=== PATIENT | male | born 1985 | race Caucasian/White ===

== ENCOUNTER 2022-08-10 11:36 | Emergency (ER) | payer OTHER ==
[2022-08-10 11:54] VITALS: RESP 16; TEMP 98.1
[2022-08-10] MEDS ORDERED: SODIUM CHLORIDE 0.9% 1,000 ML IV STA (12:33)
[2022-08-10] MEDS ORDERED: diphenhydrAMINE 50 MG/ML 1 ML VIAL IVP STA (12:34)
[2022-08-10] MEDS ORDERED: METOCLOPRAMIDE 5 MG/ML 2 ML VIAL IVP STA (12:34)
--- NOTE | 2022-08-10 12:37 | ED ---
General Adult HPI - General Chief complaint: Headache Stated complaint: headache, memory problem Time Seen by Provider: 08/10/22 12:00 Source: patient, family, RN notes reviewed Mode of arrival: ambulatory Limitations: no limitations - History of Present Illness Initial comments: Patient is a pleasant 36-year-old male presenting to the emergency department with concerns with headache. Onset of symptoms was around 4 weeks ago. Patient is having left-sided headaches. The last 2 days patient has having difficulty naming objects. Patient does not feel confused however is concerned that patient has some memory problems as well. No weakness. Headache is currently rated 8/10. Headache was not sudden onset. Tylenol or Motrin to help with he adache. Patient occasionally has mild photophobia. No nausea or vomiting. No history of chronic headaches. Patient did go to urgent care as well as primary care physician with concerns for ALLERGIES and sinus infections. - Related Data Home Medications Medication Instructions Recorded Confirmed Fluticasone Nasal [place] [Flonase 2 spr EA NOSTRIL BID PRN 08/10/22 08/10/22 Nasal [place]] lisinopriL [Zestril] 10 mg PO HS 08/10/22 08/10/22 Allergies Allergy/AdvReac Type Severity Reaction Status Date / Time No Known Allergies Allergy Verified 08/10/22 13:53 Review of Systems ROS Statement: Those systems with pertinent positive or pertinent negative responses have been documented in the HPI. ROS Other: All systems not noted in ROS Statement are negative. Constitutional: Denies: fever Eyes: Denies: eye pain, vision change ENT: Denies: ear pain Respiratory: Denies: cough Cardiovascular: Denies: chest pain Endocrine: Denies: fatigue Gastrointestinal: Denies: abdominal pain Genitourinary: Denies: dysuria Musculoskeletal: Denies: back pain Skin: Denies: rash Neurological: Reports: as per HPI, headache Past Medical History Past Medical History: Hypertension History of Any Multi-Drug Resistant Organisms: None Reported Past Surgical History: No Surgical Hx Reported Past Psychological History: Anxiety Smoking Status: Never smoker Past Alcohol Use History: None Reported Past Drug Use History: None Reported General Exam Limitations: no limitations General appearance: alert, in no apparent distress Head exam: Present: normocephalic Eye exam: Present: normal appearance, PERRL, EOMI ENT exam: Present: normal oropharynx Neck exam: Present: normal inspection Respiratory exam: Present: normal lung sounds bilaterally Cardiovascular Exam: Present: regular rate, normal rhythm GI/Abdominal exam: Present: soft. Absent: tenderness Extremities exam: Present: normal inspection Neurological exam: Present: alert, CN II-XII intact. Absent: motor sensory deficit Expanded Neurological exam: Present: protecting the airway Speech: Present: fluid speech Cranial nerves: EOM's Intact: Normal, Facial Sensation: Normal Sensory exam: Upper Extremity Light Touch: Normal, Lower Extremity Light Touch: Normal Motor strength exam: RUE: 5, LUE: 5, RLE: 5, LLE: 5 Eye Response: (4) open spontaneously Motor Response: (6) obeys commands Verbal Response: (5) oriented Psychiatric exam: Present: normal affect, normal mood Skin exam: Present: normal color Course Vital Signs 08/10/22 08/10/22 08/10/22 11:50 13:53 14:36 Temperature 98.1 F Pulse Rate 100 90 Respiratory 16 16 Rate Blood Pressure 150/94 119/78 128/84 O2 Sat by Pulse 98 97 Oximetry - Reevaluation(s) Reevaluation #1: 08/10/22 13:54 Call received from radiologist with concern for bleed. Patient is getting loaded up and stroke robot and paged sent for neurointerventional 08/10/22 14:06 Case was discussed with Dr. Iftikhar navarro who does recommend blood pressure control and transferred to [place]. 08/10/22 14:11 Repeat pressure 119/78 08/10/22 14:28 Also discussed with the transfer center at [facility], Dr. Sandoval to except transfer. Patient reevaluated. Patient and family updated. Family does not want patient to be transferred to [facility] secondary to insurance reasons. They do work at [employer] and do not feel insurance will cover this. 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 Patient is in agreement. They are made aware of concern for potential deterioration for waiting, and previous experience with transfers to [facility] can be prolonged. She would like time to contact some people. 08/10/22 14:51 Patient and family still would like to try [facility] transfer center. She quest c alling there for transfer to [facility] or [place] 08/10/22 15:04 Transfer team contacted. They will call back. 08/10/22 15:28 [facility] called and will call back. 08/10/22 15:40 case was discussed with Dr. Brown at [facility] who will likely accept patient and is looking for a bed. He does recommend 2 g of Keppra. 08/10/22 15:44 Patient again reevaluated. Patient and family updated. 08/10/22 18:21 [facility] contacted several times and are currently cleaning a bed with anticipation of availability soon. EKG Findings - EKG Comments: EKG Findings:: Sinus rhythm rate 80. CT 146. QRS 1:15. QT 376. QTc 412. Left axis. Normal QRS. No acute ST change Medical Decision Making - Lab Data Result diagrams: 08/10/22 12:39 08/10/22 12:39 Lab Results 08/10/22 08/10/22 08/10/22 Range/Units 12:39 12:39 12:39 WBC 6.6 (3.8-10.6) k/uL RBC 5.19 (4.30-5.90) m/uL Hgb 15.8 (13.0-17.5) gm/dL Hct 45.5 (39.0-53.0) % MCV 87.7 (80.0-100.0) fL MCH 30.5 (25.0-35.0) pg MCHC 34.8 (31.0-37.0) g/dL RDW 12.7 (11.5-15.5) % Plt Count 183 (150-450) k/uL MPV 7.9 Neutrophils % 76 % Lymphocytes % 12 % Monocytes % 8 % Eosinophils % 1 % Basophils % 1 % Neutrophils # 5.0 (1.3-7.7) k/uL Lymphocytes # 0.8 L (1.0-4.8) k/uL Monocytes # 0.6 (0-1.0) k/uL Eosinophils # 0.0 (0-0.7) k/uL Basophils # 0.0 (0-0.2) k/uL PT 10.6 (9.0-12.0) sec INR 1.0 (<1.2) APTT 27.1 (22.0-30.0) sec Sodium 139 (137-145) mmol/L Potassium 4.3 (3.5-5.1) mmol/L Chloride 100 (98-107) mmol/L Carbon Dioxide 28 (22-30) mmol/L Anion Gap 11 mmol/L BUN 19 (9-20) mg/dL Creatinine 1.02 (0.66-1.25) mg/dL Est GFR (CKD-EPI)AfAm >90 (>60 ml/min/1.73 sqM) Est GFR (CKD-EPI)NonAf >90 (>60 ml/min/1.73 sqM) Glucose 112 H (74-99) mg/dL Calcium 9.9 (8.4-10.2) mg/dL Total Bilirubin 0.6 (0.2-1.3) mg/dL AST 29 (17-59) U/L ALT 20 (4-49) U/L Alkaline Phosphatase 69 (38-126) U/L Total Protein 7.4 (6.3-8.2) g/dL Albumin 5.0 (3.5-5.0) g/dL Serum Alcohol <10 mg/dL - Radiology Data Radiology results: image reviewed (As discussed with radiologist left frontal b leed with mass effect and shift. Positive vasogenic edema. Cannot exclude underlying tumor.) Critical Care Time Critical Care Time: Yes Total Critical Care Time: 45 Disposition Clinical Impression: Cerebral parenchymal hemorrhage Disposition: OTHER INSTITUTION NOT DEFINED Is patient prescribed a controlled substance at d/c from ED?: No Referrals: Nonstaff,Physician [Primary Care Provider] - 1-2 days Time of Disposition: 15:40 - Out of Hospital Transfer - Req. Specs Out of Hospital Transfer - Requested Specifics: Neurological ICU
[2022-08-10 12:48] LABS: Basophils % (A) 1 %; Eosinophils % (A) 1 %; HCT 45.5 % (39.0-53.0); HGB 15.8 gm/dL (13.0-17.5); Lymphocytes # (A) 0.8 k/uL (1.0-4.8); Lymphocytes % (A) 12 %; MCH 30.5 pg (25.0-35.0); MCHC 34.8 g/dL (31.0-37.0); MCV 87.7 fL (80.0-100.0); Mean Platelet Volume 7.9; Monocytes # (A) 0.6 k/uL (0-1.0); Monocytes % (A) 8 %; Neutrophils % (A) 76 %; Platelet Count 183 k/uL (150-450); RBC 5.19 m/uL (4.30-5.90); RDW 12.7 % (11.5-15.5); WBC 6.6 k/uL (3.8-10.6)
[2022-08-10 12:57] LABS: Partial Thromboplastin Time 27.1 sec (22.0-30.0); Prothrombin Time 10.6 sec (9.0-12.0)
--- NOTE | 2022-08-10 13:17 | XR ---
EXAMINATION TYPE: XR chest 2V DATE OF EXAM: 08/10/2022 COMPARISON: NONE HISTORY: Altered mental status and weakness. TECHNIQUE: Frontal and lateral views of the chest are obtained. FINDINGS: There is no suspicious focal air space opacity, pleural effusion, or pneumothorax seen. T he cardiac silhouette size is within normal limits. Slight underlying scoliotic curvature. IMPRESSION: No acute cardiopulmonary process.
[2022-08-10 13:24] LABS: ALT 20 U/L (4-49); AST 29 U/L (17-59); African American GFR (CKD) >90 (>60 ml/min/1.73 sqM); Alcohol <10 mg/dL; Alkaline Phosphatase 69 U/L (38-126); Anion Gap 11 mmol/L; Blood Urea Nitrogen 19 mg/dL (9-20); Calcium 9.9 mg/dL (8.4-10.2); Carbon Dioxide 28 mmol/L (22-30); Chloride 100 mmol/L (98-107); Glucose 112 mg/dL (74-99); Non-African American GFR(CKD) >90 (>60 ml/min/1.73 sqM); Potassium 4.3 mmol/L (3.5-5.1); Sodium 139 mmol/L (137-145); Total Bilirubin 0.6 mg/dL (0.2-1.3); Total Protein 7.4 g/dL (6.3-8.2)
--- NOTE | 2022-08-10 13:54 | CT ---
EXAMINATION TYPE: CT brain wo con DATE OF EXAM: 08/10/2022 COMPARISON: None HISTORY: MABRY, memory loss CT DLP: [address] of the brain was performed. There is a large left frontal intraparenchymal hematoma noted measuring 4.3 x 4.2 x 3.9 cm. There is surrounding edema. Mass effect upon the left frontal horn with left to right shift of 5.3 mm. I canno t exclude impending subfalcine herniation. No additional areas of hemorrhage are seen. Osseous calvarium is intact. If symptoms persist consider MRI as clinically warranted. IMPRESSION: 1. Large left frontal intraparenchymal hemorrhage with surrounding edema and mass effect upon the lef t lateral ventricle. Midline shift as noted with impending subfalcine herniation difficult to exclude . Underlying neoplasm is not excluded. Additional considerations include aneurysm, posttraumatic hemo rrhage and hypertensive hemorrhage.
--- NOTE | 2022-08-10 14:58 | CT ---
EXAMINATION TYPE: CT angio head neck DATE OF EXAM: 08/10/2022 HISTORY: Headache x 3 weeks COMPARISON: CT brain earlier today. CT DLP: 552.5 mGycm. Automated Exposure Control for Dose Reduction was Utilized. TECHNIQUE: CTA scan of the head and neck is performed with IV Contrast, patient injected with 65ml m L of Isovue 370, axial images are obtained, coronal and sagittal reformatted images are reviewed. 3D reconstructed images are created on an independent workstation and reviewed. FINDINGS: Carotid/Vascular Structures: Normal three-vessel origin from the aortic arch. No significant plaque o r stenosis in the common or internal carotid arteries bilaterally with particular attention to the bi lateral carotid bulbs. Patent external carotid arteries bilaterally without significant focal plaque or stenosis. Images of the anterior circulation show dominant left vertebral artery. Vertebral arteries are patent to the basilar junction. There are poorly visualized posterior to indicating arteries. No significan t focal stenosis or aneurysm in the posterior circulation is seen. Images of the anterior circulation show hypoplastic or not well-visualized anterior communicate artery. There is no significant focal s tenosis or aneurysm in the anterior circulation. Other: Persistent roughly 4.5 cm hyperdense area left frontal lobe with surrounding vasogenic edema h aving local mass effect and midline shift is redemonstrated. It appears more suspected intra-axial in location IMPRESSION: 1. No significant stenosis in common or internal carotid arteries bilaterally. 2. No significant stenosis or aneurysm at the level of the [place]. 3. Roughly 4.5 cm left frontal hyperdense area favors intra-axial location, suspect hemorrhagic or hy perdense mass or neoplasm over hemorrhagic infarct. Clinical correlation and follow-up advised. NASCET criteria was used in interpretation of this exam?
[2022-08-10] MEDS ORDERED: levETIRAcetam IV 2,000 MG in SODIUM CHLORIDE 0.9% 250 ML IVPB ONE (16:00)
[2022-08-10 19:55] VITALS: BP 103/70; PULSE 55
== END 2022-08-10 21:26 | disposition other institution (70) ==
LOC: EC 11:36
DX: I61.9 Nontraumatic intracerebral hemorrhage, unspecified (principal)
CPT/HCPCS: 93005; 80053; 85025; 85610; 85730; 80320; 71046; 70496; 70450; 70498; 96374; 96375; 96361; 99285; J1200; J2765; J1953; Q9967; 36415

== ENCOUNTER 2022-09-20 12:44 | Emergency (ER) | payer OTHER ==
[2022-09-20] MEDS ORDERED: METOCLOPRAMIDE 5 MG/ML 2 ML VIAL IVP STA (13:43)
[2022-09-20] MEDS ORDERED: diphenhydrAMINE 50 MG/ML 1 ML VIAL IVP STA (13:43)
[2022-09-20] MEDS ORDERED: MAGNESIUM SULFATE-D5W PMX 1 GM in DEXTROSE/WATER 1 100ML.BAG IVPB ONE (13:44)
[2022-09-20 14:24] LABS: Basophils # (A) 0.1 k/uL (0-0.2); Basophils % (A) 1 %; Eosinophils # (A) 0.1 k/uL (0-0.7); Eosinophils % (A) 1 %; HCT 45.9 % (39.0-53.0); HGB 15.6 gm/dL (13.0-17.5); Lymphocytes # (A) 1.4 k/uL (1.0-4.8); Lymphocytes % (A) 24 %; MCHC 33.9 g/dL (31.0-37.0); MCV 88.5 fL (80.0-100.0); Mean Platelet Volume 7.7; Monocytes # (A) 0.5 k/uL (0-1.0); Monocytes % (A) 8 %; Neutrophils # (A) 3.9 k/uL (1.3-7.7); Neutrophils % (A) 64 %; Platelet Count 265 k/uL (150-450); RBC 5.18 m/uL (4.30-5.90); RDW 12.5 % (11.5-15.5)
--- NOTE | 2022-09-20 14:37 | CT ---
EXAMINATION TYPE: CT brain wo con DATE OF EXAM: 09/20/2022 COMPARISON: HISTORY: MABRY, craniotomy one month ago for tumor and hemorrhage CT DLP: 1103.6 mGycm. Automated Exposure Control for Dose Reduction was Utilized. TECHNIQUE: CT scan of the head is performed without contrast. FINDINGS: There is no acute intracranial hemorrhage, mass effect, or midline shift identified. The ventricles and sulci are within normal limits in size. The globes are intact and the visualized sin uses are clear. Left-sided craniotomy is seen in there is an area of low attenuation left frontal lobe compatible wit h the area of encephalomalacia. A prominent cisterna magna noted. Craniocervical junction is maintain ed. A partially empty sella turcica noted. Orbits are symmetric. Changes of chronic sinusitis. Pacchi onian granulation likely accounts for the lucent changes involving the inner table of the occipital c alvarium. IMPRESSION: 1. No acute intracranial hemorrhage, mass effect, or midline shift is seen. 2. Encephalomalacia in the left frontal lobe at the site of prior intraparenchymal hemorrhage. 2. Postsurgical craniotomy changes. 3. There is a prominent fluid-filled density in the posterior fossa. Differential diagnosis includes arachnoid cyst and prominent cisterna magna. Findings stable. 4. partially empty sella turcica is stable from prior exam
[2022-09-20 14:38] LABS: ALT 29 U/L (4-49); AST 31 U/L (17-59); African American GFR (CKD) >90 (>60 ml/min/1.73 sqM); Albumin 5.2 g/dL (3.5-5.0); Alkaline Phosphatase 67 U/L (38-126); Anion Gap 8 mmol/L; Blood Urea Nitrogen 13 mg/dL (9-20); Calcium 10.1 mg/dL (8.4-10.2); Carbon Dioxide 29 mmol/L (22-30); Chloride 104 mmol/L (98-107); Glucose 91 mg/dL (74-99); Non-African American GFR(CKD) >90 (>60 ml/min/1.73 sqM); Potassium 4.5 mmol/L (3.5-5.1); Sodium 141 mmol/L (137-145); Total Bilirubin 0.4 mg/dL (0.2-1.3); Total Protein 7.6 g/dL (6.3-8.2)
--- NOTE | 2022-09-20 15:20 | CT ---
EXAMINATION TYPE: CT angio head neck CT DLP: 645.2 mGycm, Automated exposure control for dose reduction was used. DATE OF EXAM: 09/20/2022 3:05 PM COMPARISON: CTA head neck 08/10/2022. CLINICAL INDICATION:Male, 36 years old with history of headache; PHH, Headache, post Crainiotomy TECHNIQUE: Axially acquired helical CT angiogram of the head and neck was obtained with contrast util izing 65 cc of Isovue-370 administered intravenously. Axial images are supplemented with 3D reconstru ctions which were post-processed at an independent workstation. NASCET criteria used. FINDINGS: Please refer to dedicated CT head of the same day for findings related to area of encephalomalacia an d craniotomy changes in the left frontal lobe. CTA HEAD: The visualized portions of the internal carotid arteries, middle cerebral arteries, anterior cerebral arteries, and posterior cerebral arteries are patent. The posterior communicating arteries are poorl y visualized again. The anterior communicating artery is hypoplastic or not well-visualized. The basilar and vertebral arteries are patent. Left vertebral artery is dominant. CTA NECK: Right Carotid System: The common carotid artery and external carotid artery are patent. The carotid bifurcation demonstrate s no evidence of hemodynamically significant stenosis. The remaining portions of the internal carotid artery demonstrate normal size without significant narrowing. Left Carotid System: The common carotid artery and external carotid artery are patent. The carotid bifurcation demonstrate s no evidence of hemodynamically significant stenosis. The remaining portions of the internal carotid artery demonstrate normal size without significant narrowing. Vertebral arteries are patent without evidence hemodynamically significant stenosis. There is a three-vessel aortic arch. The origins of the great vessels are patent. No evidence of hemo dynamically significant stenosis. IMPRESSION: 1. No evidence of dissection of the cervical internal carotid arteries or vertebral arteries or any e vidence of significant stenosis at the carotid bifurcations. 2. No evidence of high-grade stenosis or intracranial aneurysm.
[2022-09-20] MEDS ORDERED: fentaNYL (PF) 50 MCG/ML 2 ML AMP IVP STA (16:17)
--- NOTE | 2022-09-20 16:21 | ED ---
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 He shouldn't was seen in the emergency department on August 10 for headache. He was diagnosed with a mass and was transferred on a different receiving. He had a craniectomy performed with resection. He was diagnosed with either an AVM or cavernoma. He has had persistent headache since the surgery however it has been mild. Yesterday the patient began having worsening headache described as 6 out of 10 on the right side of his head. No visual changes. Admits to photophobia. Took a [place] which she has post surgery without any improvement in his symptoms. He denies fevers. No visual changes. No confusion or slurred speech. No other alleviating, precipitating or modifying factors - Related Data Home Medications Medication Instructions Recorded Confirmed Fluticasone Nasal [place] [Flonase 2 spr EA NOSTRIL BID PRN 08/10/22 08/10/22 Nasal [place]] lisinopriL [Zestril] 10 mg PO HS 08/10/22 08/10/22 Allergies Allergy/AdvReac Type Severity Reaction Status Date / Time No Known Allergies Allergy Verified 09/20/22 13:25 Review of Systems ROS Statement: Those systems with pertinent positive or pertinent negative responses have been documented in the HPI. ROS Other: All systems not noted in ROS Statement are negative. Past Medical History Past Medical History: Hypertension Additional Past Medical History / Comment(s): Brain bleed History of Any Multi-Drug Resistant Organisms: None Reported Past Surgical History: No Surgical Hx Reported Past Psychological History: Anxiety Smoking Status: Never smoker Past Alcohol Use History: None Reported Past Drug Use History: None Reported General Exam Limitations: no limitations General appearance: alert, in no apparent distress Head exam: Present: atraumatic, normocephalic, normal inspection Eye exam: Present: normal appearance, PERRL, EOMI. Absent: scleral icterus, conjunctival injection, periorbital swelling ENT exam: Present: normal exam, mucous membranes moist Neck exam: Present: normal inspection. Absent: tenderness, meningismus, lymphadenopathy Respiratory exam: Present: normal lung sounds bilaterally. Absent: respiratory distress, wheezes, rales, rhonchi, stridor Cardiovascular Exam: Present: regular rate, normal rhythm, normal heart sounds. Absent: systolic murmur, diastolic murmur, rubs, gallop, clicks GI/Abdominal exam: Present: soft, normal bowel sounds. Absent: distended, t enderness, guarding, rebound, rigid Extremities exam: Present: normal inspection, full ROM, normal capillary refill. Absent: tenderness, pedal edema, joint swelling, calf tenderness Back exam: Present: normal inspection Neurological exam: Present: alert, oriented X3, CN II-XII intact Psychiatric exam: Present: normal affect, normal mood Skin exam: Present: warm, dry, intact, normal color. Absent: rash Course Vital Signs 09/20/22 09/20/22 09/20/22 13:23 14:36 15:10 Temperature 98.4 F 97.8 F Pulse Rate 93 94 92 Respiratory 20 20 18 Rate Blood Pressure 126/74 123/82 122/80 O2 Sat by Pulse 99 98 98 Oximetry 09/20/22 09/20/22 16:47 17:31 Temperature 97.8 F 98.2 F Pulse Rate 95 90 Respiratory 20 20 Rate Blood Pressure 116/78 123/77 O2 Sat by Pulse 97 98 Oximetry Medical Decision Making - Medical Decision Making Upon arrival patient was placed into room 25. A thorough history and physical exam was performed. IV access is established. Laboratories is her conducted. Patient sent for a CT as well as CT angiography. Patient given 10 mg Reglan and 25 of Benadryl. Reevaluated and reports to improvement in his pain. I did discuss diagnosis, differential treatment options. Patient will be discharged home at this time and is instructed to follow up with his neurosurgeon. Also given recommendations for an neurology. Needs to be reevaluated by him. Return for any new or worsening symptoms. Patient agreeable and discharged home in stable condition - Lab Data Result diagrams: 09/20/22 14:10 09/20/22 14:10 Lab Results 09/20/22 09/20/22 Range/Units 14:10 14:10 WBC 6.0 (3.8-10.6) k/uL RBC 5.18 (4.30-5.90) m/uL Hgb 15.6 (13.0-17.5) gm/dL Hct 45.9 (39.0-53.0) % MCV 88.5 (80.0-100.0) fL MCH 30.0 (25.0-35.0) pg MCHC 33.9 (31.0-37.0) g/dL RDW 12.5 (11.5-15.5) % Plt Count 265 (150-450) k/uL MPV 7.7 Neutrophils % 64 % Lymphocytes % 24 % Monocytes % 8 % Eosinophils % 1 % Basophils % 1 % Neutrophils # 3.9 (1.3-7.7) k/uL Lymphocytes # 1.4 (1.0-4.8) k/uL Monocytes # 0.5 (0-1.0) k/uL Eosinophils # 0.1 (0-0.7) k/uL Basophils # 0.1 (0-0.2) k/uL Sodium 141 (137-145) mmol/L Potassium 4.5 (3.5-5.1) mmol/L Chloride 104 (98-107) mmol/L Carbon Dioxide 29 (22-30) mmol/L Anion Gap 8 mmol/L BUN 13 (9-20) mg/dL Creatinine 0.95 (0.66-1.25) mg/dL Est GFR (CKD-EPI)AfAm >90 (>60 ml/min/1.73 sqM) Est GFR (CKD-EPI)NonAf >90 (>60 ml/min/1.73 sqM) Glucose 91 (74-99) mg/dL Calcium 10.1 (8.4-10.2) mg/dL Total Bilirubin 0.4 (0.2-1.3) mg/dL AST 31 (17-59) U/L ALT 29 (4-49) U/L Alkaline Phosphatase 67 (38-126) U/L Total Protein 7.6 (6.3-8.2) g/dL Albumin 5.2 H (3.5-5.0) g/dL Disposition Clinical Impression: Cephalalgia, S/P craniotomy Disposition: HOME SELF-CARE Condition: Stable Instructions (If sedation given, give patient instructions): Acute Headache (ED) Additional Instructions: Follow-up with the neurologist in regards to your symptoms. Return for any new or worsening symptoms Is patient prescribed a controlled substance at d/c from ED?: No Referrals: Lisa Monahan DO [Primary Care Provider] - 1-2 days Renee Sorto MD [REFERRING] - 1-2 days Gulshan Sorto MD [REFERRING] - 1-2 days Keanu Burgos MD [STAFF PHYSICIAN] - 1-2 days Brain Rangel DO [STAFF PHYSICIAN] - 1-2 days Time of Disposition: 16:19
[2022-09-20 16:49] VITALS: RESP 20
[2022-09-20 17:32] VITALS: BP 123/77; PULSE 90; TEMP 98.2
== END 2022-09-20 17:31 | disposition home or self-care (01) ==
LOC: EC 12:44
DX: R51.9 Headache, unspecified (principal); Z48.811 Encounter for surgical aftercare following surgery on the nervous system; I10 Essential (primary) hypertension; F41.9 Anxiety disorder, unspecified; Z79.899 Other long term (current) drug therapy
CPT/HCPCS: 36415; 80053; 85025; 70496; 70450; 70498; 99284; 96365; 96375 ×3; J1200; J2765; J3010; J3475; Q9967

== ENCOUNTER 2023-12-11 15:13 | Emergency (ER) | payer OTHER ==
--- NOTE | 2023-12-11 15:21 | ED ---
Headache HPI - General Source: patient, RN notes reviewed <Leia Mckeon - Last Filed: 12/11/23 15:24> <Jen Le - Last Filed: 12/16/23 00:43> - General Stated Complaint: headaches Time Seen by Provider: 12/11/23 15:20 - History of Present Illness Initial Comments: patient is a 38-year-old male presented ER with chief complaint of headache. Patient did go to undergo a mass removal of his brain about a year ago. He states for the past 5-6 days his headache has been increasing and he is worried something is wrong. Patient also is endorsing nausea. Patient is tried [id number] medications without relief. (Leia Mckeon) 38-year-old male with past medical history of bleeding AVM who presents emergency department reporting headache. Patient reports that he has had a headache for the past 5 to 6 days. He will take Motrin for the headache. It does not seem to be helping. He denies any visual changes. No nausea or vomiting. No head trauma. Denies any lateralizing weakness. Patient states that he will occasionally have headaches however they normally are alleviated with Motrin and Tylenol. No other alleviating, precipitating or modifying factors (Jen Le) - Related Data Home Medications Medication Instructions Recorded Confirmed Fluticasone Nasal [place] [Flonase 2 spr EA NOSTRIL BID PRN 08/10/22 08/10/22 Nasal [place]] lisinopriL [Zestril] 10 mg PO HS 08/10/22 08/10/22 Allergies Allergy/AdvReac Type Severity Reaction Status Date / Time No Known Allergies Allergy Verified 12/11/23 17:07 Review of Systems ROS Other: All systems not noted in ROS Statement are negative. <Leia Mckeon - Last Filed: 12/11/23 15:24> ROS Other: All systems not noted in ROS Statement are negative. <Jen Le - Last Filed: 12/16/23 00:43> ROS Statement: Those systems with pertinent positive or pertinent negative responses have been documented in the HPI. Past Medical History Past Medical History: Hypertension Additional Past Medical History / Comment(s): Brain bleed History of Any Multi-Drug Resistant Organisms: None Reported Past Surgical History: No Surgical Hx Reported Past Psychological History: Anxiety Smoking Status: Never smoker Past Alcohol Use History: None Reported Past Drug Use History: None Reported <Leia Mckeon - Last Filed: 12/11/23 15:24> General Exam <Leia Mckeon - Last Filed: 12/11/23 15:24> General appearance: alert, in no apparent distress Head exam: Present: atraumatic, normocephalic, normal inspection Eye exam: Present: normal appearance, PERRL, EOMI. Absent: scleral icterus, conjunctival injection, periorbital swelling ENT exam: Present: normal exam, mucous membranes moist Neck exam: Present: normal inspection. Absent: tenderness, meningismus, lymphadenopathy Respiratory exam: Present: normal lung sounds bilaterally. Absent: respiratory distress, wheezes, rales, rhonchi, stridor Cardiovascular Exam: Present: regular rate, normal rhythm, normal heart sounds. Absent: systolic murmur, diastolic murmur, rubs, gallop, clicks GI/Abdominal exam: Present: soft, normal bowel sounds. Absent: distended, tenderness, guarding, rebound, rigid Extremities exam: Present: normal inspection, full ROM, normal capillary refill. Absent: tenderness, pedal edema, joint swelling, calf tenderness Back exam: Present: normal inspection Neurological exam: Present: alert, oriented X3, CN II-XII intact Psychiatric exam: Present: normal affect, normal mood Skin exam: Present: warm, dry, intact, normal color. Absent: rash <Jen Le - Last Filed: 12/16/23 00:43> - General Exam Comments Initial Comments: Visual Physical Exam General: Well-appearing, nontoxic, no acute distress. Head: Normocephalic, atraumatic Eyes: PERRLA, EOMI ENT: Airway patent Chest: Nonlabored breathing Skin: No visual rash, normal skin tone Neuro: Alert and oriented 3 Musculoskeletal: No gross abnormalities (Leia Mckeon) Course Vital Signs 12/11/23 12/11/23 12/11/23 17:01 18:37 20:13 Temperature 98.5 F Pulse Rate 84 80 65 Respiratory 18 18 16 Rate Blood Pressure 147/103 131/88 114/81 O2 Sat by Pulse 99 99 99 Oximetry Medical Decision Making <Leia Mckeon - Last Filed: 12/11/23 15:24> - Lab Data Result diagrams: 12/11/23 15:46 12/11/23 15:46 <Jen Le - Last Filed: 12/16/23 00:43> - Medical Decision Making I performed the quick note portion of the exam. Electronically signed by Leia Mckeon PA-C (Leia Mckeon) Was pt. sent in by a medical professional or institution ([facility], [facility], urgent care, hospital, or [facility]...) When possible be specific @ -No Did you speak to anyone other than the patient for history (EMS, parent, family, police, friend...)? What history was obtained from this source @ -Spoke with the patient's in regards to the symptoms Did you review nursing and triage notes (agree or disagree)? Why? @ -I reviewed and agree with nursing and triage notes Were old charts reviewed (outside hosp., previous admission, EMS record, old EKG, old radiological studies, urgent care reports/EKG's, [facility] records)? Report findings @ -I reviewed patient's previous ED visit where he was diagnosed with his brain mass and was transferred out Differential Diagnosis (chest pain, altered mental status, abdominal pain women, abdominal pain men, vaginal bleeding, weakness, fever, dyspnea, syncope, headache, dizziness, GI bleed, back pain, seizure, CVA, palpatations, mental health, musculoskeletal)? @ -Differential Headache: Migraine, tension, cluster, carbon monoxide, central venous thrombosis, pension karma temporal arteritis, acute closure glaucoma, intercranial hemorrhage, mastoiditis, sinusitis, head injury, this is not meant to be an all-inclusive list. EKG interpreted by me (3pts min.). @ -Not done X-rays interpreted by me (1pt min.). @ -None done CT interpreted by me (1pt min.). @ -Yes and demonstrates no acute intracranial process U/S interpreted by me (1pt. min.). @ -None done What testing was considered but not performed or refused? (CT, X-rays, U/S, labs)? Why? @ -None What meds were considered but not given or refused? Why? @ -None Did you discuss the management of the patient with other professionals (professionals i.e. Dr., PA, [employer], lab, RT, psych nurse, social sciences research scientist, executive compensation analyst, teacher, chemistry technical officer, catalytic case operator)? Give summary @ -No Was smoking cessation discussed for >3mins.? @ -No Was critical care preformed (if so, how long)? @ -No Were there social determinants of health that impacted care today? How? (Homelessness, low income, unemployed, alcoholism, drug addiction, transportation, low edu. Level, literacy, decrease access to med. care, shelter, rehab)? @ -No Was there de-escalation of care discussed even if they declined (Discuss DNR or withdrawal of care, Hospice)? DNR status @ -No What co-morbidities impacted this encounter? (DM, HTN, Smoking, COPD, CAD, Cancer, CVA, ARF, Chemo, Hep., AIDS, mental health diagnosis, sleep apnea, morbid obesity)? @ -AVM Was patient admitted / discharged? Hospital course, mention meds given and route, prescriptions, significant lab abnormalities, going to OR and other pertinent info. @ -Discharge. Upon arrival patient was placed in the hallway 26. Thorough history and physical exam was performed. Patient does have CT performed because of his history. CT is negative for any acute process. Patient was given a migraine cocktail with resolution of his headache. Patient feels comfortable with discharge at this time. Instructed to follow-up with his neurologist for further management of his headaches and return for any new or worsening symptoms Undiagnosed new problem with uncertain prognosis? @ -No Drug Therapy requiring intensive monitoring for toxicity (Heparin, Nitro, Insu danilo, Cardizem)? @ -No Were any procedures done? @ -No Diagnosis/symptom? @ -Acute cephalgia, history of bleeding AVM Acute, or Chronic, or Acute on Chronic? @ -Acute Uncomplicated (without systemic symptoms) or Complicated (systemic symptoms)? @ -Complicated Side effects of treatment? @ -No Exacerbation, Progression, or Severe Exacerbation? @ -No Poses a threat to life or bodily function? How? (Chest pain, [place], [place], pneumonia, PE, COPD, DKA, ARF, appy, cholecystitis, CVA, Diverticulitis, Homicidal, Suicidal, threat to staff... and all critical care pts) @ -No (Jen Le) - Lab Data Lab Results 12/11/23 12/11/23 12/11/23 Range/Units 15:46 15:46 15:46 WBC 7.0 (3.8-10.6) k/uL RBC 4.83 (4.30-5.90) m/uL Hgb 14.7 (13.0-17.5) gm/dL Hct 43.6 (39.0-53.0) % MCV 90.3 (80.0-100.0) fL MCH 30.5 (25.0-35.0) pg MCHC 33.7 (31.0-37.0) g/dL RDW 12.5 (11.5-15.5) % Plt Count 204 (150-450) k/uL MPV 7.5 Sodium 139 (137-145) mmol/L Potassium 5.0 (3.5-5.1) mmol/L Chloride 105 (98-107) mmol/L Carbon Dioxide 27 (22-30) mmol/L Anion Gap 7 mmol/L BUN 12 (9-20) mg/dL Creatinine 0.89 (0.66-1.25) mg/dL Est GFR (CKD-EPI)AfAm >90 (>60 ml/min/1.73 sqM) Est GFR (CKD-EPI)NonAf >90 (>60 ml/min/1.73 sqM) Glucose 121 H (74-99) mg/dL Calcium 10.4 H (8.4-10.2) mg/dL Total Bilirubin 0.5 (0.2-1.3) mg/dL AST 31 (17-59) U/L ALT 19 (4-49) U/L Alkaline Phosphatase 64 (38-126) U/L Total Protein 7.5 (6.3-8.2) g/dL Albumin 4.9 (3.5-5.0) g/dL Influenza Type A (PCR) Not Detected (Not Detectd) Influenza Type B (PCR) Not Detected (Not Detectd) RSV (PCR) Not Detected (Not Detectd) SARS-CoV-2 (PCR) Not Detected (Not Detectd) Disposition <Leia Mckeon - Last Filed: 12/11/23 15:24> Is patient prescribed a controlled substance at d/c from ED?: No Time of Disposition: 20:02 <Jen Le - Last Filed: 12/16/23 00:43> Clinical Impression: Migraine headache Disposition: HOME SELF-CARE Condition: Stable Instructions (If sedation given, give patient instructions): Acute Headache (ED) Additional Instructions: Please talk to your doctor about further medications to help control your headaches. Return should you have any concerns Referrals: Lisa Monahan DO [Primary Care Provider] - 1-2 days
[2023-12-11 16:00] LABS: HCT 43.6 % (39.0-53.0); HGB 14.7 gm/dL (13.0-17.5); MCH 30.5 pg (25.0-35.0); MCHC 33.7 g/dL (31.0-37.0); MCV 90.3 fL (80.0-100.0); Mean Platelet Volume 7.5; Platelet Count 204 k/uL (150-450); RBC 4.83 m/uL (4.30-5.90); RDW 12.5 % (11.5-15.5)
[2023-12-11 16:11] LABS: ALT 19 U/L (4-49); AST 31 U/L (17-59); African American GFR (CKD) >90 (>60 ml/min/1.73 sqM); Albumin 4.9 g/dL (3.5-5.0); Alkaline Phosphatase 64 U/L (38-126); Anion Gap 7 mmol/L; Blood Urea Nitrogen 12 mg/dL (9-20); Calcium 10.4 mg/dL (8.4-10.2); Carbon Dioxide 27 mmol/L (22-30); Chloride 105 mmol/L (98-107); Glucose 121 mg/dL (74-99); Non-African American GFR(CKD) >90 (>60 ml/min/1.73 sqM); Sodium 139 mmol/L (137-145); Total Bilirubin 0.5 mg/dL (0.2-1.3); Total Protein 7.5 g/dL (6.3-8.2)
[2023-12-11 17:33] VITALS: TEMP 98.5
--- NOTE | 2023-12-11 17:57 | CT ---
EXAMINATION TYPE: CT brain wo con CT DLP: 1114.4 mGycm, Automated exposure control for dose reduction was used. DATE OF EXAM: 12/11/2023 5:28 PM COMPARISON: 09/20/2022. CLINICAL INDICATION:Male, 38 years old with history of headache, Headache, hx brain tumor, sx TECHNIQUE: Brain: Axial CT images of the brain were obtained with coronal and sagittal reformats created and rev iewed. Contrast used: None. Oral contrast used: None. FINDINGS: Brain: Extra-axial spaces: No abnormal extra-axial fluid collections. Ventricular system: Within normal limits Cerebral parenchyma: Postsurgical changes of the left frontal lobe compatible with history. No acute intraparenchymal hemorrhage or mass effect. The hernandes-white junction is well differentiated. Cerebellum: Unremarkable. Mass effect: No evidence of midline shift. Intracranial vasculature: unremarkable Soft tissues: Normal. Calvarium/osseous structures: No depressed skull fracture. Craniotomy changes left frontal lobe. Paranasal sinuses and mastoid air cells: Mild scattered paranasal sinus disease. Visualized orbits: Orbital contents are intact. IMPRESSION: 1. No acute intracranial process. 2. Posttreatment changes left frontal lobe.
[2023-12-11] MEDS: ONDANSETRON 4 MG/2 ML VIAL IVP STA (18:43)
[2023-12-11] MEDS: MAGNESIUM SULFATE-D5W PMX 1 GM in DEXTROSE/WATER 1 100ML.BAG IVPB ONE (19:17)
[2023-12-11] MEDS: SODIUM CHLORIDE 0.9% 1,000 ML IV STA (19:17)
[2023-12-11] MEDS: KETOROLAC 15 MG/ML 1 ML VIAL IVP STA (19:18)
[2023-12-11] MEDS: DEXAMETHASONE SOD PHOSPHATE 10 MG/ML 1 ML VIAL IVP STA (19:18)
[2023-12-11] MEDS: diphenhydrAMINE 50 MG/ML 1 ML VIAL IVP STA (19:18)
[2023-12-11] MEDS: METOCLOPRAMIDE 5 MG/ML 2 ML VIAL IVP STA (19:19)
[2023-12-11 20:27] VITALS: BP 114/81; PULSE 65; RESP 16
== END 2023-12-11 20:15 | disposition home or self-care (01) ==
LOC: EC 15:13
DX: G43.909 Migraine, unspecified, not intractable, without status migrainosus (principal); I10 Essential (primary) hypertension; F41.9 Anxiety disorder, unspecified; Z79.899 Other long term (current) drug therapy; Z20.822 Contact with and (suspected) exposure to COVID-19
CPT/HCPCS: 36415; 80053; 85027; 87636; 70450; 99284; 96365; 96375 ×5; J1200; J1100; J2765; J2405; J3475; J1885